=== PATIENT | female | born 1980 | race Two or more races ===

== ENCOUNTER 2018-06-20 06:00 | Outpatient (CLI) | payer OTHER | END 2018-06-20 06:05 | disposition home or self-care (01) | LOC: LAB 06:00 → CIR.AMB 07-02 12:27 → EDSTATUS 07-02 15:00 → CIR.AMB 07-02 15:00 | DX: K43.2 Incisional hernia without obstruction or gangrene (principal) ==

== ENCOUNTER → 2019-05-20 | Day surgery (SDC) | payer OTHER ==
[~2019-05-20] MED LIST: COLACE100 MG PO; NEURONTIN300 MG PO; PERCOCET 5-3251 EACH PO
== END | disposition home or self-care (01) ==
LOC: ADM 05-15 08:15 → CIR.AMB 07:00
DX: K43.0 Incisional hernia with obstruction, without gangrene (principal); D17.1 Benign lipomatous neoplasm of skin and subcutaneous tissue of trunk

== ENCOUNTER 2019-11-04 14:38 | Emergency (ER) | payer OTHER ==
[~2019-11-04] VITALS: Ht 157.5 cm; Wt 53.5 kg
== END 2019-11-04 20:42 | disposition home or self-care (01) ==
LOC: ER 14:38
DX: N83.02 Follicular cyst of left ovary (principal); N83.01 Follicular cyst of right ovary

== ENCOUNTER 2019-11-05 11:07 | Outpatient (CLI) | payer OTHER | END 2019-11-05 15:00 | disposition home or self-care (01) | LOC: LAB 11:07 | DX: E03.8 Other specified hypothyroidism (principal); D63.8 Anemia in other chronic diseases classified elsewhere; E78.00 Pure hypercholesterolemia, unspecified; R73.09 Other abnormal glucose; N20.0 Calculus of kidney ==

== ENCOUNTER 2019-11-06 09:30 | Outpatient (CLI) | payer OTHER | END 2019-11-06 09:49 | disposition home or self-care (01) | LOC: TOM 09:30 | DX: R10.31 Right lower quadrant pain (principal) ==

== ENCOUNTER 2020-08-20 07:35 | Emergency (ER) | payer OTHER ==
[~2020-08-20] VITALS: Ht 157.5 cm; Wt 55.8 kg
== END 2020-08-20 17:09 | disposition home or self-care (01) ==
LOC: ER 07:35
DX: N13.2 Hydronephrosis with renal and ureteral calculous obstruction (principal); R10.31 Right lower quadrant pain; Z03.818 Encounter for observation for suspected exposure to other biological agents ruled out